=== PATIENT | male | born 1945 | race Caucasian/White ===

== ENCOUNTER 2019-02-08 10:43 | Day surgery (SDC) | payer MEDICARE ==
[~2019-02-08] VITALS: Ht 188 cm; Wt 128.0 kg
[2019-02-08 11:24] VITALS: BP 117/64
[2019-02-08] MEDS ORDERED: DIPHENHYDRAMINE 50 MG/ML, 1ML ONE (11:26)
[2019-02-08] MEDS ORDERED: DIPHENHYDRAMINE 50 MG/ML, 1ML IVPush ONE (11:30)
[2019-02-08] MEDS ORDERED: HYDR25TA6 PO (11:35)
[2019-02-08] MEDS ORDERED: HYDR200T72 PO (11:35)
[2019-02-08] MEDS ORDERED: FURO20TA3 PO (11:35)
[2019-02-08] MEDS ORDERED: PRED20TA PO (11:37)
[2019-02-08] MEDS ORDERED: LIOT5TAB3 PO (11:38)
[2019-02-08] MEDS ORDERED: DILT120C88 PO (11:39)
[2019-02-08] MEDS ORDERED: LEVO75TA5 PO (11:39)
[2019-02-08] MEDS ORDERED: ISOS60TA36 PO (11:40)
[2019-02-08] MEDS ORDERED: TRAM50TA2 PO (11:40)
[2019-02-08] MEDS ORDERED: LOSA100T2 PO (11:41)
[2019-02-08] MEDS ORDERED: ATOR40TA78 PO (11:42)
[2019-02-08] MEDS ORDERED: METF10007 PO (11:43)
[2019-02-08] MEDS ORDERED: NITR0.3T5 SL (11:45)
[2019-02-08] MEDS ORDERED: NINT150C PO (11:45)
[2019-02-08] MEDS ORDERED: MIDAZOLAM 1 MG/ML, 2ML ONE (12:46)
[2019-02-08] MEDS ORDERED: FENTANYL PF 100 MCG/2ML ONE (12:47)
[2019-02-08] MEDS ORDERED: VERAPAMIL 2.5 MG/ML, 2ML ONE (12:51)
[2019-02-08] MEDS ORDERED: HEPARIN 1,000 UNITS/ML, 10ML ONE (12:51)
[2019-02-08] MEDS ORDERED: LIDOCAINE-MPF 1%, 5ML ONE (12:52)
[2019-02-08] MEDS ORDERED: SODIUM CHLORIDE 0.9% 1,000 ML IV SCH (13:55)
== END 2019-02-08 16:52 | disposition home or self-care (01) ==
LOC: CACL 10:43 → 5SO 13:38 → CACL 16:52
PROVIDERS: ATTEND Internal Medicine Cardiovascular Disease
DX: I25.10 Atherosclerotic heart disease of native coronary artery without angina pectoris (principal); I27.0 Primary pulmonary hypertension; E78.00 Pure hypercholesterolemia, unspecified
CPT/HCPCS: 36415; 83880; 93456; 99156; 99157; C1769; C1894; J1200; J1644; J2250; J3010; Q9967; G0378

== ENCOUNTER 2019-02-28 13:06 | Outpatient (CLI) | payer MEDICARE | END 2019-02-28 23:59 | disposition home or self-care (01) | LOC: CARD 13:06 | PROVIDERS: ATTEND Internal Medicine Cardiovascular Disease | DX: J84.10 Pulmonary fibrosis, unspecified (principal); K80.20 Calculus of gallbladder without cholecystitis without obstruction; J92.9 Pleural plaque without asbestos | CPT/HCPCS: 94618 ==

== ENCOUNTER → 2019-02-28 | Outpatient (CLI) | payer MEDICARE ==
[~2019-02-28] MED LIST: ATOR40TA78 PO; DILT120C88 PO; FURO20TA3 PO; HYDR200T72 PO; HYDR25TA6 PO; ISOS60TA36 PO; LEVO75TA5 PO; LIOT5TAB3 PO; LOSA100T2 PO; METF10007 PO; NINT150C PO; NITR0.3T5 SL; PRED20TA PO; TRAM50TA2 PO
== END | disposition home or self-care (01) ==
LOC: RAD 13:04
PROVIDERS: ATTEND Internal Medicine Cardiovascular Disease
DX: Z02.9 Encounter for administrative examinations, unspecified (principal)